=== PATIENT | female | born 1985 | race Two or more races ===

== ENCOUNTER 2024-07-12 12:01 | Emergency (ER) | payer MEDICAID, SELFPAY ==
[2024-07-12 12:02] VITALS: BMI 31.4
[2024-07-12 12:31] VITALS: BP 129/91; PULSE 92; RESP 16; TEMP 36.8; O2SAT 97; BMI 29.9
--- NOTE | 2024-07-12 12:39 | XR_ITS ---
Examination: Abdomen sonogram, Limited Date and time of exam: July 12, 2024 1324 hours INDICATIONS: Right upper abdominal pain and nausea beginning 2 months ago. Technique: Real-time briones scale transabdominal sonographic images of the upper abdomen obtained. Findings: Negative for gallstones Gallbladder wall 0.3 cm no edema Common bile duct 0.3 cm Pancreatic head 2.5 cm Liver 12 cm fatty infiltration no focal liver lesions Normal hepatopedal portal venous flow Patent IVC IMPRESSION: Negative for cholelithiasis, negative for cholecystitis Fatty liver
--- NOTE | 2024-07-12 12:47 | EDNOTE_ITS ---
ED Abdominal Pain RME/HPI General Chief Complaint: Abdominal Pain Stated complaint: UR abdominal pain, Nausea Time seen by provider: 07/12/24 12:33 Arrival date/time: 07/12/24 12:01 This is a 38-year-old female with no significant past medical history presents to the emergency department with increased intermittent upper mid epigastric abdominal pain intermittent for 3 months. Patient does report she has been seeing her PCP and is pending an outpatient ultrasound. However states her pain increased today prompting her ED visit today. The patient denies any fever, no chills no nausea or vomiting. Patient did not attempt any interventions or take any OTC medications prior to ED visit. Source: patient Limitations: no limitations Related Data Home Medications ?Medication ?Instructions ?Recorded ?Confirmed Lactobacillus acidophilus 10 1 cap PO QDAY ##0 5 billion cell capsule (Probiotic) melatonin 5 mg tablet 10 mg PO HS PRN SLEEPLESSNES S #0 10/07/14 tabs Previous Rx's ?Medication ?Instructions ?Recorded sucralfate 100 mg/mL oral 10 ml PO BID 14 days #280 mL 07/12/24 suspension (Carafate) Allergies Allergy/AdvReac Type Severity Reaction Status Date / Time NKA* Allergy Uncoded 10/08/14 08:49 Review of Systems Review of Systems Systems Reviewed: All systems reviewed, normal except as documented Narrative Review of Systems: Gen: No fever, no chills, no weight loss EYES: No discharge, no visual changes, no pain HEENT: No ear pain, no congestion, no sore throat PULM: No shortness of breath, no cough, no congestion CV: No chest pain, no dyspnea on exertion, no palpitations GI: No nausea, no vomiting, no diarrhea, + pain, no constipation : No frequency, no urgency,? no dysuria Musc/skel: No joint pain, no back pain as well as Neuro: No weakness, no headache ED Exam General Limitations: Present no limitations General appearance: Present alert and in no apparent distress Head Head exam: Present atraumatic Eye Eye exam: Present normal appearance, PERRL and EOMI ENT ENT exam: Present normal exam, normal oropharynx and mucous membranes moist Neck Neck exam: Present normal inspection, full ROM and trachea midline Chest Chest inspection: Present normal inspection and symmetric chest wall rise Respiratory Respiratory exam: Present normal lung sounds bilaterally Cardiovascular Cardiovascular exam: Present regular rate, normal rhythm and normal heart sounds Abdominal Exam Abdominal exam: Present soft and normal bowel sounds Extremities Exam Extremities exam: Present normal inspection and full ROM Back Exam Back exam: Present normal inspection and full ROM Neurological Exam Neurological exam: Present alert, oriented X3 and CN II-XII intact Psychiatric Psychiatric exam: Present normal affect and normal mood Skin Skin exam: Present warm, dry, intact and normal color Course Quality Measures none Orders Category Date Time Status US gall bladder Stat Exams 07/12/24 12:39 Completed CBC Stat Lab 07/12/24 12:45 Completed Comprehensive Metabolic Panel Stat Lab 07/12/24 12:45 Completed HCG Qualitative,Urine Stat Lab 07/12/24 13:00 Completed Lipase Stat Lab 07/12/24 12:45 Completed Urinalysis Stat Lab 07/12/24 13:00 Completed Lidocaine 2% Viscous [Xylocaine 2% Viscous] Med 07/12/24 14:16 Discontinued 15 ml PO X1 ONE mg Hyd/Al Hyd/Zee Susp [Maalox Susp] Med 07/12/24 14:16 Discontinued 30 ml PO X1 ONE Vital Signs Vital signs: Vital Signs Temperature 98.3 F 07/12/24 12:31 Pulse Rate 92 07/12/24 12:31 Respiratory Rate 16 07/12/24 12:31 Blood Pressure 129/91 H 07/12/24 12:31 Pulse Oximetry (%) 97 07/12/24 12:31 Oxygen Delivery Method Room Air 07/12/24 12:31 Abdominal Pain MDM Patient data External records reviewed:: [facility] previous records Clinical information provided by:: patient Social determinants that could affect healthcare access:: none Patient has the following chronic illnesses:: no How is presenting disease/condition affected by chronic disease/condition?: no chronic disease Evaluation data The following diagnostics were reviewed and interpreted by me:: lab results and radiology exam(s) Lab and/or radiology exams considered but not ordered:: no Interpretation Summary: Examination: Abdomen sonogram, Limited Date and time of exam: July 12, 2024 1324 hours INDICATIONS: Right upper abdominal pain and nausea beginning 2 months ago. Technique: Real-time briones scale transabdominal sonographic images of the upper abdomen obtained. Findings: Negative for gallstones Gallbladder wall 0.3 cm no edema Common bile duct 0.3 cm Pancreatic head 2.5 cm Liver 12 cm fatty infiltration no focal liver lesions Normal hepatopedal portal venous flow Patent IVC IMPRESSION: Negative for cholelithiasis, negative for cholecystitis Fatty liver Medications / Prescriptions Medications or Prescriptions considered but not ordered:: no Medication administrations:: Medication Administration History Discontinued Medications Al Hydrox/Mg Hydrox/Simethicone (Mg Hyd/Al Hyd/Zee (Maalox Reg) Susp 30 Ml Udc) 30 ml PO X1 ONE Stop: 07/12/24 14:17 Last Admin: 07/12/24 15:12 Dose: 30 ml Documented By: DB Lidocaine HCl (Lidocaine Viscous 2% 15 Ml Udc) 15 ml PO X1 ONE Stop: 07/12/24 14:17 Last Admin: 07/12/24 15:12 Dose: 15 ml Documented By: ENIO meds administered Consultations Consultation(s) initiated? (list below): No Diagnosis Differential diagnosis abdominal pain: abdominal pain, constipation, gastroenteritis, pancreatitis and other (gallstoness, gastritis.) Most likely diagnosis given after review of the tests above:: GERD=like symptoms Admission Indicated Admission indicated?: not indicated Admission Request Was there a request for admission?: No Disposition Plan Disposition Plan: Discharge Discharge Attestation Discharge Attestation: The patient and all family members were given an opportunity to ask questions and understood the discharge instructions. Discharge instructions specifically effects, indications for sooner follow up or return to the emergency department, and the expected course of current diagnosis. Patient condition: Stable Discharge Plan Plan Patient Disposition: HOME (Self Care) Patient condition on transfer: Stable Prescriptions/Referrals Prescriptions/Med Rec: New sucralfate [Carafate] 100 mg/mL suspension 10 ml PO BID 14 Days Qty: 280 0RF Rx Instructions: 10 ml PO QID, 1 hr before meals and bedtime 2wk No Action melatonin 5 MG tablet 10 mg PO HS PRN (Reason: SLEEPLESSNESS) Qty: 0 Lactobacillus acidophilus [Probiotic] 1 EACH capsule 1 cap PO QDAY Qty: 0 Referrals: Prudencio Maguire MD [Primary Care Provider] - In 1 week Problem List Clinical Impression: Epigastric abdominal pain Patient/Caregiver Discharge Instructions Discharge Activity: activity as tolerated Education Materials: ED Epigastric Pain (Uncertain Cause) Additional Instructions: Most likely your pain is from gastritis. Your labs today were all reassuring and normal. Your ultrasound did not demonstrate gallstones. Please use medication as directed. Return to the emergency department this any worsening symptoms any condition. Print Language: Libyan Stand Alone Forms: Jenifer Award Info., Patient Portal Info Letter
[2024-07-12 13:05] LABS: Basophils # (Auto) 0.1 Thou/mm3 (0.0-0.2); Basophils % (Auto) 1 % (0-2.5); Eosinophils # (Auto) 0.1 Thou/mm3 (0.0-0.5); Eosinophils % (Auto) 1 % (0-10); Hematocrit 40.3 % (36.0-46.0); Hemoglobin 13.9 g/dL (12.0-16.0); Immature Granulocytes % (Auto) 0 % (0-0); Immature Granulocytes Auto 0.01 Thou/mm3 (0.00-0.00); Lymphocytes # (Auto) 1.5 Thou/mm3 (1.0-4.8); Lymphocytes % (Auto) 25 % (10-50); Mean Corpuscular HGB Conc 34.5 g/dl (31.0-37.0); Mean Corpuscular Hemoglobin 30.4 pg (25.0-35.0); Mean Corpuscular Volume 88 fL (80-100); Monocytes # (Auto) 0.4 Thou/mm3 (0.0-0.8); Monocytes % (Auto) 6 % (0-12); Neutrophils % (Auto) 66 % (37-80); Nucleated Red Blood Cell % 0 /100 WBC (0); Platelet Count 258 Thou/mm3 (140-440); RDW Standard Deviation 40.8 fL (36.4-46.3); Red Blood Count 4.57 Miln/mm3 (4.00-5.20)
[2024-07-12 13:17] LABS: Collection Type, Urine Clean Catch
[2024-07-12 13:24] LABS: Alanine Aminotransferase 13 U/L (10-49); Albumin, Serum 4.9 gm/dL (3.5-5.0); Albumin/Globulin Ratio 1.6 (1.2-2.2); Alkaline Phosphatase 126 U/L (46-116); Anion Gap 11 (7-16); Aspartate Amino Transferase 17 U/L (0-34); BUN/Creatinine Ratio 15 Ratio (12-20); Bilirubin,Total 0.6 mg/dL (0.3-1.2); Blood Urea Nitrogen 9 mg/dL (9-23); Calcium 10.1 mg/dL (8.3-10.6); Calcium (Corrected) 10.1 mg/dL (8.5-10.1); Carbon Dioxide 22.3 mMol/L (20.0-31.0); Chloride 109 mMol/L (98-107); Creatinine (Component) 0.6 mg/dL (0.6-1.3); Estimated Creatinine Clearance 148.7 mL/min (>60); Globulin 3.1 gm/dL (2.3-3.5); Glucose 98 mg/dL (74-106); Lipase 29 U/L (12-53); Osmolality,Calculated 281 (275-295); Potassium 3.4 mMol/L (3.4-5.1); Sodium 142 mMol/L (136-145); eGFR > 60 See Note
[2024-07-12 13:38] LABS: Bilirubin,Urine Negative (Negative); Blood,Urine 3+ (Negative); Color,Urine Dark-Red (Lt Yel-Yel); Glucose, Urine Negative (Negative); Ketones,Urine 1+ (Negative); Leukocyte Esterase,Urine Positive (Negative); Nitrite,Urine Positive (Negative); PH,Urine 6.5 (5.0-7.0); Protein,Urine 3+ (Neg - Trace); Specific Gravity,Urine 1.025 (1.001-1.035); Urobilinogen,Urine Negative mg/dL (0.0-1.0)
[2024-07-12 13:39] LABS: Clarity,Urine Bloody (Clear/Hazy)
[2024-07-12 13:43] LABS: RBC,Urine 41787 /hpf (0-3); Squamous Epithelial Cell,Urine 180 /hpf (0-5); WBC,Urine 680 /hpf (0-5)
[2024-07-12 13:57] LABS: HCG Qualitative,Urine Negative
[2024-07-12] MEDS: LIDOCAINE VISCOUS 2% 15 ML UDC PO (15:12)
[2024-07-12] MEDS: MG HYD/AL HYD/SIME (Maalox Reg) SUSP 30 ML UDC PO (15:12)
== END 2024-07-12 15:52 | disposition home or self-care (01) ==
PROVIDERS: Nurse Practitioner Primary Care; Emergency Provider Emergency Medicine; PCP Family Medicine
DX: R10.13 Epigastric pain (principal)
CPT/HCPCS: 36415; 76705; 80053; 81001; 81025; 83690; 85025; 99284; J3490; A9270

== ENCOUNTER 2024-08-11 11:32 | Emergency (ER) | payer MEDICAID, SELFPAY ==
[2024-08-11 11:55] VITALS: BP 129/83; PULSE 71; RESP 18; TEMP 36.8; O2SAT 100; BMI 29.1
--- NOTE | 2024-08-11 12:00 | PD.EDABDPN ---
ED Abdominal Pain RME/HPI General Chief Complaint: Abdominal Pain Stated complaint: Right mid abdominal pain x 2d Time seen by provider: 08/11/24 11:36 Arrival date/time: 08/11/24 11:32 RME / HPI RME / HPI narrative: 38-year-old female patient with no significant medical history, came in for evaluation regarding right lower quadrant pain. Onset of symptoms since last night as sudden onset of right lower quadrant pain, described as dull ache, severity moderate. Patient denies any fever vomiting nausea diarrhea constipation hematuria frequency or other complaints. Patient was seen here last month for abdominal pain and ultrasound of the gallbladder came back unremarkable. Currently taking medication for gastritis. Related Data Home Medications ?Medication ?Instructions ?Recorded ?Confirmed Lactobacillus acidophilus 10 1 cap PO QDAY ##0 10/07/14 billion cell capsule (Probiotic) melatonin 5 mg tablet 10 mg PO HS PRN SLEEPLESSNESS #0 10/07/14 tabs Previous Rx's ?Medication ?Instructions ?Recorded metoclopramide HCl 10 mg tablet 10 mg PO Q6H PRN nausea and 08/11/24 (Reglan) vomiting #30 tabs pantoprazole 40 mg tablet,delayed 40 mg PO QDAY #30 tabs 08/11/24 release (Protonix) Allergies Allergy/AdvReac Type Severity Reaction Status Date / Time NKA* Allergy Uncoded 08/11/24 11:34 Review of Systems Review of Systems Narrative Review of Systems: Review of system reviewed and within normal limits except mentioned in HPI ED Exam Narrative Physical exam: VITAL SIGNS: Reviewed. GENERAL APPEARANCE: Alert and interactive, follows commands, no acute distress, HEAD AND FACE: Non-traumatic. ENT: PERRL, pink conjunctivitis, eyelid no trauma, Mucous membrane moist. NECK: Supple, nontender, no nuchal rigidity. CHEST: No tenderness, no crepitus, no paradoxical movement, no retractions. LUNGS: Clear, well ventilated, symmetric, no rales, no wheezing, no ronchi, no stridor, good breath sounds bilaterally. HEART: Regular rate, regular rhythm, no murmur, no gallops. ABDOMEN: Soft, positive bowel sounds, nondistended, no guarding, right lower quadrant tenderness, no rebound, no masses, RECTAL: Deferred. GENITAL: Deferred. NEUROLOGICAL: Gross motor function intact sensory function intact, Appropriate for age. MUSCULOSKELETAL: low back nontender, full range of motion. EXTREMITIES: Nontender, full range of motion. SKIN: Color pink, dry, no rash, no lacerations, no abrasions, no contusions. LYMPHATICS: Deferred. Course Quality Measures none Orders Category Date Time Status CT Screening NOW Care 08/11/24 12:[address] abdomen pelvis w con Stat Exams 08/11/24 12:13 Completed CBC Stat Lab 08/11/24 12:46 Completed Comprehensive Metabolic Panel Stat Lab 08/11/24 12:46 Completed HCG Qualitative,Urine Stat Lab 08/11/24 12:48 Completed Lipase Stat Lab 08/11/24 12:46 Completed Partial Thromboplastin Time Stat Lab 08/11/24 12:46 Completed Urinalysis, C/S if Indicated Stat Lab 08/11/24 12:48 Completed KCL 10% Liq UDC 15 ML Med 08/11/24 14:25 Discontinued 40 meq GT X1 ONE Ketorolac Inj [Toradol Inj] Med 08/11/24 12:15 Discontinued 30 mg IVP X1 ONE Ondansetron Odt [Zofran Odt] Med 08/11/24 12:15 Discontinued 4 mg PO X1 ONE mg Hyd/Al Hyd/Zee Susp [Maalox Susp] Med 08/11/24 15:52 Discontinued 30 ml PO X1 ONE Vital Signs Vital signs: Vital Signs Temperature 98.3 F 08/11/24 11:55 Pulse Rate 71 08/11/24 11:55 Respiratory Rate 18 08/11/24 11:55 Blood Pressure 129/83 08/11/24 11:55 Pulse Oximetry (%) 100 08/11/24 11:55 Oxygen Delivery Method Room Air 08/11/24 11:55 Abdominal Pain MDM MDM Narrative MDM Narrative:: 38-year-old female patient with no significant medical history, came in for evaluation regarding right lower quadrant pain. Onset of symptoms since last night as sudden onset of right lower quadrant pain, described as dull ache, severity moderate. Patient denies any fever vomiting nausea diarrhea constipation hematuria frequency or other complaints. Patient was seen here last month for abdominal pain and ultrasound of the gallbladder came back unremarkable. Currently taking medication for gastritis. Laboratory workup all came back with no leukocytosis, CMP is significant for for potassium of 3.1. Total bili is normal, AST slightly elevated ALT slightly elevated. Urinalysis mild hematuria CT scan of the abdomen and pelvis showedNormal appendix Nonobstructing left renal calculi Results discussed with the patient. Prior to discharge patient verbalized significant provide of right upper quadrant pain Patient data External records reviewed:: None Clinical information provided by:: patient and family Social determinants that could affect healthcare access:: none Patient has the following chronic illnesses:: none How is presenting disease/condition affected by chronic disease/condition?: uneffected by Evaluation data The following diagnostics were reviewed and interpreted by me:: lab results and radiology exam(s) Lab and/or radiology exams considered but not ordered:: none Interpretation Summary: See results in [facility] Medications / Prescriptions Medications or Prescriptions considered but not ordered:: None Medication administrations:: Medication Administration History Discontinued Medications Al Hydrox/Mg Hydrox/Simethicone (Mg Hyd/Al Hyd/Zee (Maalox Reg) Susp 30 Ml Udc) 30 ml PO X1 ONE Stop: 08/11/24 15:53 Last Admin: 08/11/24 15:54 Dose: 30 ml Documented By: UMM Ketorolac Tromethamine (Ketorolac Inj 30 Mg/Ml Vial) 30 mg IVP X1 ONE Stop: 08/11/24 12:16 Last Admin: 08/11/24 14:13 Dose: 30 mg Documented By: GARRETT Ondansetron HCl (Ondansetron Odt 4 Mg Tabrap) 4 mg PO X1 ONE; Protocol Stop: 08/11/24 12:16 Last Admin: 08/11/24 14:12 Dose: 4 mg Documented By: GARRETT Potassium Chloride (Potassium Chloride 10% 20 Meq/15 Ml Udc) 40 meq GT X1 ONE Stop: 08/11/24 14:26 Last Admin: 08/11/24 14:36 Dose: 40 meq Documented By: UMM Toradol Maalox and Zofran potassium replaced Consultations Consultation(s) initiated? (list below): No Diagnosis Differential diagnosis abdominal pain: abdominal pain, calculus of kidney, diverticulitis and other (Biliary colic) Most likely diagnosis given after review of the tests above:: Abdominal pain Admission Indicated Admission indicated?: not indicated Admission Request Was there a request for admission?: No Disposition Plan Disposition Plan: Discharge Discharge Attestation Discharge Attestation: The patient and all family members were given an opportunity to ask questions and understood the discharge instructions. Discharge instructions specifically effects, indications for sooner follow up or return to the emergency department, and the expected course of current diagnosis. Patient condition: Stable Discharge Plan Plan Patient Disposition: HOME (Self Care) Disposition Comment: Stable Prescriptions/Referrals Prescriptions/Med Rec: New metoclopramide HCl [Reglan] 10 mg tablet 10 mg PO Q6H PRN (Reason: nausea and vomiting) Qty: 30 0RF pantoprazole [Protonix] 40 mg tablet,delayed release (DR/EC) 40 mg PO QDAY Qty: 30 0RF No Action melatonin 5 MG tablet 10 mg PO HS PRN (Reason: SLEEPLESSNESS) Qty: 0 Lactobacillus acidophilus [Probiotic] 1 EACH capsule 1 cap PO QDAY Qty: 0 Referrals: Prudencio Maguire MD [Primary Care Provider] - In 1 week Problem List Clinical Impression: Abdominal pain Patient/Caregiver Discharge Instructions Discharge Activity: activity as tolerated Education Materials: Abdominal Pain Additional Instructions: Thank you for the opportunity for serving you today. You are stable for discharged . You are advised to: Follow-up with your PCP in 1 to 2 days Return to ED for worsening of symptoms Increase oral fluids Take medication as prescribed Print Language: American Stand Alone Forms: Jenifer Award Info., Patient Portal Info Letter
--- NOTE | 2024-08-11 12:13 | XR_ITS ---
Examination: CT abdomen with intravenous contrast CT pelvis with intravenous contrast 2-D coronal reconstructions 2-D sagittal reconstructions Date and time of exam:August 11, 2024 1427 hrs. Indications: Right lower abdominal pain beginning 2 days ago. CTDI: vol (mGy) 10.9 DLP: (mGycm) 616 Technique: Multiple axial sections of the abdomen and pelvis have been obtained. 64 slice high-resolution scanner used. 3 mm axial sections have been obtained, post intravenous injection 60 cc [id number] 2-D sagittal, coronal reconstructions obtained. Low dose protocols were performed. One or more of the following dose reduction techniques were used; automated exposure control, adjustment of the mA and/or KV according to patient size, use of iterative reconstruction technique. Findings: Diffuse fatty infiltration throughout the liver, no focal liver or splenic lesions No gallstones Negative for pancreatitis 1 to 2 mm left renal calculi, no hydronephrosis or ureteral calculi Normal appendix No pelvic mass No bladder calculi Impression: Normal appendix Nonobstructing left renal calculi
[2024-08-11 13:19] LABS: Collection Type, Urine Clean Catch
[2024-08-11 13:36] LABS: Bilirubin,Urine Negative (Negative); Blood,Urine 3+ (Negative); Color,Urine Lt-Yellow (Lt Yel-Yel); Culture Indicated,Urine Not Indicated; Glucose, Urine Negative (Negative); Ketones,Urine 1+ (Negative); Leukocyte Esterase,Urine Negative (Negative); Nitrite,Urine Negative (Negative); Protein,Urine Negative (Neg - Trace); RBC,Urine 7 /hpf (0-3); Specific Gravity,Urine 1.008 (1.001-1.035); Squamous Epithelial Cell,Urine 8 /hpf (0-5); Transitional Epi Cells,Urine < 1 /hpf (0-5); Urobilinogen,Urine Negative mg/dL (0.0-1.0); WBC,Urine 4 /hpf (0-5)
[2024-08-11 13:37] LABS: Clarity,Urine Hazy (Clear/Hazy)
[2024-08-11 13:38] LABS: HCG Qualitative,Urine Negative
[2024-08-11 13:57] LABS: Basophils % (Auto) 0 % (0-2.5); Eosinophils # (Auto) 0.1 Thou/mm3 (0.0-0.5); Eosinophils % (Auto) 1 % (0-10); Hematocrit 38.6 % (36.0-46.0); Hemoglobin 13.2 g/dL (12.0-16.0); Immature Granulocytes % (Auto) 0 % (0-0); Immature Granulocytes Auto 0.02 Thou/mm3 (0.00-0.00); Lymphocytes # (Auto) 1.4 Thou/mm3 (1.0-4.8); Lymphocytes % (Auto) 26 % (10-50); Mean Corpuscular HGB Conc 34.2 g/dl (31.0-37.0); Mean Corpuscular Hemoglobin 29.9 pg (25.0-35.0); Mean Corpuscular Volume 87 fL (80-100); Monocytes # (Auto) 0.4 Thou/mm3 (0.0-0.8); Monocytes % (Auto) 7 % (0-12); Neutrophils # (Auto) 3.5 Thou/mm3 (1.8-7.7); Neutrophils % (Auto) 65 % (37-80); Nucleated Red Blood Cell % 0 /100 WBC (0); Platelet Count 263 Thou/mm3 (140-440); RDW Standard Deviation 40.9 fL (36.4-46.3); Red Blood Count 4.42 Miln/mm3 (4.00-5.20); White Blood Count 5.4 Thou/mm3 (3.6-11.0)
[2024-08-11 14:08] LABS: Partial Thromboplastin Time 28.7 Seconds (22.0-36.0)
[2024-08-11 14:12] LABS: Alanine Aminotransferase 72 U/L (10-49); Albumin, Serum 4.5 gm/dL (3.5-5.0); Albumin/Globulin Ratio 1.6 (1.2-2.2); Alkaline Phosphatase 106 U/L (46-116); Anion Gap 10 (7-16); Aspartate Amino Transferase 54 U/L (0-34); BUN/Creatinine Ratio 7 Ratio (12-20); Bilirubin,Total 0.6 mg/dL (0.3-1.2); Blood Urea Nitrogen < 5 mg/dL (9-23); Calcium 9.5 mg/dL (8.3-10.6); Calcium (Corrected) 9.5 mg/dL (8.5-10.1); Carbon Dioxide 23.4 mMol/L (20.0-31.0); Chloride 110 mMol/L (98-107); Creatinine (Component) 0.7 mg/dL (0.6-1.3); Estimated Creatinine Clearance 121.6 mL/min (>60); Globulin 2.9 gm/dL (2.3-3.5); Glucose 91 mg/dL (74-106); Lipase 31 U/L (12-53); Osmolality,Calculated 282 (275-295); Potassium 3.1 mMol/L (3.4-5.1); Sodium 143 mMol/L (136-145); Total Protein 7.4 gm/dL (5.7-8.2); eGFR > 60 See Note
[2024-08-11] MEDS: ONDANSETRON ODT 4 MG TABRAP PO (14:12)
[2024-08-11] MEDS: KETOROLAC INJ 30 MG/ML VIAL IVP (14:13)
[2024-08-11] MEDS: POTASSIUM CHLORIDE 10% 20 MEQ/15 ML UDC 40 MEQ GT (14:36)
--- NOTE | 2024-08-11 15:35 | PRELIM_ITS ---
CT scan of the abdomen and pelvis with intravenous contrast (axial sections with sagittal and coronal reformats) August 11, 2024 1427 hours Clinical History: Right lower quadrant pain Comparison: No prior study is available for comparison. Findings: The lung bases are clear. The liver, gallbladder, pancreas, spleen, right kidney and adrenals are unremarkable. Nonobstructing left renal calculi are seen, the largest measuring 2 mm. No evidence of bowel obstruction. The appendix is within normal limits (coronal images [id number]). There is no mesenteric or retroperitoneal adenopathy. The urinary bladder is unremarkable. An IUCD is seen in place. There are bilateral follicles. There is no free fluid or free air. The osseous structures are unremarkable. Impression: No evidence of appendicitis or other acute intra-abdominal/pelvic pathology. Report Electronically Signed By: Shawn Harrison 08/11/2024 3:35:18 PM [EST]
[2024-08-11] MEDS: MG HYD/AL HYD/SIME (Maalox Reg) SUSP 30 ML UDC PO (15:54)
== END 2024-08-11 17:02 | disposition home or self-care (01) ==
PROVIDERS: Nurse Practitioner Family; Emergency Provider Emergency Medicine; PCP Family Medicine
DX: R10.31 Right lower quadrant pain (principal)
CPT/HCPCS: 36415; 74177; 80053; 81001; 81025; 83690; 85025; 85730; 96374; 99285; A4649; J1885; Q0162; Q9967; A9270

== ENCOUNTER 2024-11-02 07:11 | Inpatient (IN) | payer MEDICAID, SELFPAY ==
[2024-11-02] VITALS (8 sets, daily range): BP systolic 94–123; BP diastolic 65–85; PULSE 60–79; RESP 17–97; TEMP 36.1–36.9; O2SAT 95–100; BMI 25.4
--- NOTE | 2024-11-02 07:23 | XR_ITS ---
Examination: CT abdomen and pelvis without contrast. Coronal 3-D reconstructions. Sagittal 2-D reconstructions. Date and time of exam:November 02, 2024 0744 hours Comparison August 11, 2024 INDICATIONS: Left-sided flank pain beginning this morning, history right kidney stones CTDI: vol (mGy): 9.11 DLP: (mGycm): 544 Technique: Axial images of the abdomen have been obtained, 3 mm slice thickness Intravenous contrast material has not been administered. Low dose protocols were performed. One or more of the following dose reduction techniques were used; automated exposure control, adjustment of the mA and/or KV according to patient size, use of iterative reconstruction technique. Findings: No focal liver or splenic lesions No gallstones No pancreatic or adrenal mass 2 mm left renal calculus Minimal left hydronephrosis secondary to 2 mm proximal left ureteral calculus, coronal image 67 Aorta normal size Normal appendix No bowel obstruction Also 3 mm calculus either within the urinary bladder or at the left ureterovesical junction IMPRESSION: Minimal left hydronephrosis secondary to 2 mm proximal left ureteral calculus Also 3 mm calculus either within the urinary bladder or at the left ureterovesical junction
[2024-11-02] MEDS: DICYCLOMINE INJ 10 MG/ML 2ML AMP IM (07:32)
[2024-11-02] MEDS: LIDOCAINE VISCOUS 2% 15 ML UDC PO (07:33)
[2024-11-02] MEDS: FAMOTIDINE 20 MG TABLET PO (07:33)
[2024-11-02] MEDS: MG HYD/AL HYD/SIME (Maalox Reg) SUSP 30 ML UDC PO (07:33)
[2024-11-02 08:10] LABS: Collection Type, Urine Clean Catch
[2024-11-02 08:17] LABS: Bacteria,Urine Rare; Bilirubin,Urine Negative (Negative); Blood,Urine 3+ (Negative); Clarity,Urine Turbid (Clear/Hazy); Color,Urine Yellow (Lt Yel-Yel); Glucose, Urine Negative (Negative); Ketones,Urine 3+ (Negative); Leukocyte Esterase,Urine Positive (Negative); Nitrite,Urine Negative (Negative); Protein,Urine 1+ (Neg - Trace); RBC,Urine 693 /hpf (0-3); Specific Gravity,Urine 1.027 (1.001-1.035); Squamous Epithelial Cell,Urine 14 /hpf (0-5); WBC,Urine 15 /hpf (0-5)
[2024-11-02 08:18] LABS: HCG Qualitative,Urine Negative
[2024-11-02] MEDS: SODIUM CHLORIDE 0.9% 1000 ML 1,000 ML 999 ML IV (08:33)
[2024-11-02] MEDS: FAMOTIDINE INJ 10 MG/ML VIAL 2 ML 20 MG IVP (08:34)
[2024-11-02] MEDS: ONDANSETRON INJ 2 MG/ML INJ 2 ML 4 MG IVP ×2 (08:34→11:15)
--- NOTE | 2024-11-02 08:38 | EDNOTE_ITS ---
ED Abdominal Pain RME/HPI General Chief Complaint: Abdominal Pain Stated complaint: LLQ ABD PAIN, NAUSEA, URINARY URGENCY Time seen by provider: 11/02/24 07:12 Arrival date/time: 11/02/24 07:11 This is a case of 39-year-old female who came in in the emergency room due to left lower quadrant and left upper quadrant pain radiating to the left flank for 2 days patient have history of gastritis associated with nausea vomiting patient states that she already saw a business services representative and scheduled to do a EGD and colonoscopy patient denies any constipation or diarrhea persistence of the symptoms this patient decided to start consult with the emergency room Limitations: no limitations Related Data Home Medications ?Medication ?Instructions ?Recorded ?Confirmed Lactobacillus acidophilus 10 1 cap PO QDAY ##0 5 billion cell capsule (Probiotic) melatonin 5 mg tablet 10 mg PO HS PRN SLEEPLESSNES S #0 10/07/14 tabs Previous Rx's ?Medication ?Instructions ?Recorded metoclopramide HCl 10 mg tablet 10 mg PO Q6H PRN nause a and 08/11/24 (Reglan) vomiting #30 tabs pantoprazole 40 mg tablet,delayed 40 mg PO QDAY #30 ta bs 08/11/24 release (Protonix) Allergies Allergy/AdvReac Type Severity Reaction Status Date / Time No Known Allergies Allergy Verified 11/02/24 07:13 Review of Systems Review of Systems Systems Reviewed: All systems reviewed, normal except as documented Constitutional Constitutional: Reports system reviewed and no additional complaints, except as documented ENT Ears, Nose, Mouth, and Throat: Denies dysphagia and Denies odynophagia Cardiovascular Cardiovascular: Reports system reviewed and no additional complaints, except as documented Gastrointestinal Gastrointestinal: Reports system reviewed and no additional complaints, except as documented, Reports abdominal pain, Denies belching, Denies bloating, Denies change in bowel habits, Denies change in stool character, Denies coffee ground emesis, Denies constipation, Denies cramping, Denies diarrhea, Denies dyspepsia, Denies dysphagia, Denies early satiety, Denies excessive flatus, Denies fecal incontinence, Denies heartburn, Denies hematemesis, Denies hematochezia, Denies loose stools, Denies melena, Reports nausea, Denies odynophagia, Denies tenesmus and Reports vomiting Genitourinary Genitourinary: Reports system reviewed and no additional complaints, except as documented, Denies as per HPI, Denies abnormal menses, Denies abnormal vaginal bleeding, Denies amenorrhea, Denies change in libido, Denies difficulty conceiving, Denies difficulty voiding, Denies dysmenorrhea, Denies dyspareunia, Denies dysuria, Reports flank pain, Denies genital lesions, Denies genital pruritis, Reports hematuria, Denies hot flashes, Denies light periods, Denies menorrhagia, Denies metrorrhagia, Denies nipple discharge, Denies nocturia, Denies pelvic pain, Denies post void dribbling, Denies prolapse symptoms, Denies sexual dysfunction, Denies urinary frequency, Denies urinary incontinence, Denies urinary urgency, Denies vaginal discharge, Denies vaginal odor and Denies vaginal pruritus Integumentary/Breasts Skin/Breast: Denies nipple discharge Neurologic Neurologic: Reports system reviewed and no additional complaints, except as documented and Reports as per HPI Psychiatric Psychiatric: Denies change in libido Endocrine Endocrine: Denies change in libido Past Medical History Past Medical History CARDIAC: Negative Cardiac Disorders or Congestive Heart Failure RESPIRATORY: Negative Chronic Obstructive Pulmonary Disease (COPD) or Asthma GENITOURINARY: Negative Renal Disease ENDOCRINE: Negative Diabetes Mellitus Type 1 or Diabetes Mellitus Type 2 HEMATOLOGIC: Negative Sickle Cell Disease Social History SMOKING STATUS: Never smoker ED Exam General Limitations: Present no limitations General appearance: Present alert and in no apparent distress; Absent appears intoxicated, anxious or lethargic Head Head exam: Present atraumatic, normocephalic and normal inspection Eye Eye exam: Present normal appearance, PERRL and EOMI ENT ENT exam: Present normal exam, normal oropharynx and mucous membranes moist Neck Neck exam: Present normal inspection, full ROM and trachea midline; Absent tenderness, meningismus, lymphadenopathy or thyromegaly Chest Chest inspection: Present normal inspection and symmetric chest wall rise; Absent tenderness, rash or abscess Respiratory Respiratory exam: Present normal lung sounds bilaterally; Absent respiratory distress, wheezes, stridor, accessory muscle use or prolonged expiratory phase Cardiovascular Cardiovascular exam: Present regular rate, normal rhythm and normal heart sounds Abdominal Exam Abdominal exam: Present soft, tenderness (Mild to moderate tenderness left upper left lower quadrant and left flank) and normal bowel sounds; Absent distention, guarding, rebound, rigidity, diminished bowel sounds, hyperactive bowel sounds, hypoactive bowel sounds, organomegaly, trauma, incision, psoas sign, obturator sign, heel tap sign, Casiano's sign, Rovsing's sign, tenderness at McBurney's Point, ascites, mass, bruit, pulsatile mass, hernia or scar Abdominal tenderness: Present LUQ, LLQ and moderate External exam: Present other (No CVA tenderness) Extremities Exam Extremities exam: Present normal inspection and full ROM Back Exam Back exam: Present normal inspection and full ROM Neurological Exam Neurological exam: Present alert, oriented X3, CN II-XII intact, normal gait and reflexes normal; Absent motor sensory deficit Psychiatric Psychiatric exam: Present normal affect and normal mood Skin Skin exam: Present warm, dry, intact and normal color Course Quality Measures none Orders Category Date Time Status COVID-19 Screening Questionnaire NOW Care 11/02/24 09:41 Active Decision to Admit X1 Care 11/02/24 09:41 Completed Transfer to another facility [Transfer/Discharge] Stat Discharge 11/02/24 09:[address] abdomen pelvis wo con Stat Exams 11/02/24 07:23 Completed CBC Stat Lab 11/02/24 08:25 Completed Comprehensive Metabolic Panel Stat Lab 11/02/24 08:25 Completed Drug Screen,Urine Stat Lab 11/02/24 08:42 Completed HCG Qualitative,Urine Stat Lab 11/02/24 08:00 Completed Lactic Acid [Lactate (Lactic Acid)] Stat Lab 11/02/24 09:34 Ordered Lipase Stat Lab 11/02/24 08:25 Completed Urinalysis Stat Lab 11/02/24 08:00 Completed Dicyclomine Inj [Bentyl Inj] Med 11/02/24 07:24 Discontinued 10 mg IM X1 ONE Famotidine Inj [Pepcid Inj] Med 11/02/24 08:05 Discontinued 20 mg IVP X1 ONE Famotidine [Pepcid] Med 11/02/24 07:24 Discontinued 20 mg PO X1 ONE Lidocaine 2% Viscous [Xylocaine 2% Viscous] Med 11/02/24 07:24 Discontinued 15 ml PO X1 ONE Morphine Inj Med 11/02/24 08:42 Active 4 mg IVP Q1H PRN Ondansetron Inj [Zofran Inj] Med 11/02/24 08:05 Discontinued 4 mg IVP X1 ONE Sodium Chloride 0.9% 1000 ml [Ns] 1,000 ml Med 11/02/24 08:05 Discontinued IV 999 mls/hr cefTRIAXone/D5w 1gm IV premix [Rocephin/D5w 1gm IV Med 11/02/24 09:19 Discontinued premix] 1 gm in 50 ml IV X1 mg Hyd/Al Hyd/Zee Susp [Maalox Susp] Med 11/02/24 07:24 Discontinued 30 ml PO X1 ONE Vital Signs Vital signs: Vital Signs Temperature 98.2 F 11/02/24 07:20 Pulse Rate 70 11/02/24 07:20 Respiratory Rate 20 11/02/24 07:20 Blood Pressure 122/81 11/02/24 07:20 Pulse Oximetry (%) 99 11/02/24 07:20 Oxygen Delivery Method Room Air 11/02/24 07:20 Patient is afebrile not tachycardic not tachypneic blood pressure stable not hypoxic Abdominal Pain MDM MDM Narrative MDM Narrative:: This is a case of 39-year-old female who came in in the emergency room due to left lower quadrant and left upper quadrant pain radiating to the left flank for 2 days patient have history of gastritis associated with nausea vomiting patient states that she already saw a business services representative and scheduled to do a EGD and colonoscopy patient denies any constipation or diarrhea persistence of the symptoms this patient decided to start consult with the emergency room physical examination patient is awake alert oriented not in distress nontoxic looking patient is afebrile not tachycardic not tachypneic not hypoxic patient abdominal exam noted mild to moderate tenderness on the left lower quadrant left upper quadrant and left flank but no CVA tenderness no guarding no rebound no rigidity negative psoas negative straight or negative Rovsing's negative Blade's negative Casiano sign patient excellent skin turgor no signs and symptoms of sepsis no signs and symptoms of dehydration patient was given a bolus of normal saline Zofran IV and morphine for pain with Pepcid patient blood test showed no leukocytosis no anemia kidney and liver function is normal no electrolyte imbalance patient urinalysis showed blood and WBC in urine suggestive of urinary tract infection and microscopic hematuria patient CT scan showed a bilateral ureteral stone with hydronephrosis at this point I spoke to Dr. Ortiz discussed patient condition history and physical examination and agreed that the patient need to be transferred earlier admitted due to infected ureteral stone I spoke to Dr. Agustin urologist I discussed patient condition history and physical examination and agreed that the patient need to be admission suggest admission consult him for urologic consult I spoke to discussed patient condition history and physical examination and agreed that the patient need to be admitted and accept patient care and admission I discussed with the patient the treatment plan and admission and agreed patient was given ceftriaxone for urinary tract infection and ordered lactic acid Patient data External records reviewed:: [facility] previous records Clinical information provided by:: none Social determinants that could affect healthcare access:: none Patient has the following chronic illnesses:: None How is presenting disease/condition affected by chronic disease/condition?: no chronic disease Evaluation data The following diagnostics were reviewed and interpreted by me:: lab results and radiology exam(s) Lab and/or radiology exams considered but not ordered:: Reviewed Interpretation Summary: Reviewed Medications / Prescriptions Medications or Prescriptions considered but not ordered:: Given Medication administrations:: Medication Administration History Morphine Sulfate (Morphine Sulf Inj 10 Mg/Ml Vial) 4 mg IVP Q1H PRN PRN Reason: abd pain Stop: 11/07/24 08:41 Last Admin: 11/02/24 08:47 Dose: 4 mg Documented By: ANDERSON Discontinued Medications Al Hydrox/Mg Hydrox/Simethicone (Mg Hyd/Al Hyd/Zee (Maalox Reg) Susp 30 Ml Udc) 30 ml PO X1 ONE Stop: 11/02/24 07:25 Last Admin: 11/02/24 07:33 Dose: 30 ml Documented By: ANDERSON Dicyclomine HCl (Dicyclomine Inj 10 Mg/Ml 2ml Amp) 10 mg IM X1 ONE Stop: 11/02/24 07:25 Last Admin: 11/02/24 07:32 Dose: 10 mg Documented By: ANDERSON Famotidine (Famotidine 20 Mg Tablet) 20 mg PO X1 ONE Stop: 11/02/24 07:25 Last Admin: 11/02/24 07:33 Dose: 20 mg Documented By: ANDERSON Famotidine (Famotidine Inj 10 Mg/Ml Vial 2 Ml) 20 mg IVP X1 ONE Stop: 11/02/24 08:06 Last Admin: 11/02/24 08:34 Dose: 20 mg Documented By: BRIANA Sodium Chloride (Ns) 1,000 mls @ 999 mls/hr IV .Q1H1M ONE Stop: 11/02/24 09:05 Last Admin: 11/02/24 08:33 Dose: 999 mls/hr Documented By: BRIANA Ceftriaxone Sodium/Dextrose (Rocephin/D5w 1gm Iv Premix) 1 gm in 50 mls @ 100 mls/hr IV X1 ONE Stop: 11/02/24 09:48 Last Admin: 11/02/24 09:28 Dose: 100 mls/hr Documented By: ANDERSON Lidocaine HCl (Lidocaine Viscous 2% 15 Ml Udc) 15 ml PO X1 ONE Stop: 11/02/24 07:25 Last Admin: 11/02/24 07:33 Dose: 15 ml Documented By: ANDERSON Ondansetron HCl (Ondansetron Inj 2 Mg/Ml Inj 2 Ml) 4 mg IVP X1 ONE; Protocol Stop: 11/02/24 08:06 Last Admin: 11/02/24 08:34 Dose: 4 mg Documented By: BRIANA Given Consultations Consultation(s) initiated? (list below): Yes Consultation #1 (Physician, Specialty, Details): dr ortiz agreed that the patient need to be admitted or transfer for infected ureteral stone Consultation #2 (Physician, Specialty, Details): dr hall ordered to admit patient consult him for urology consult Consultation #3 (Physician, Specialty, Details): Dr horan accept patient admission Diagnosis Differential diagnosis abdominal pain: abdominal pain, acute appendicitis, calculus of kidney, diverticulitis, gastroenteritis and small bowel obstruction Most likely diagnosis given after review of the tests above:: Ureteral stone Admission Indicated Admission indicated?: indicated Explain why admission is indicated or not indicated:: Infected ureteral stone Admission Request Was there a request for admission?: Yes Admission Attestation Admission request attestation: Discussed case with [] from Hospitalist service regarding admission. Discussed patients ED course, exam findings, labs, and radiology results. The Hospitalist [agrees,declines] to accept the patient for admission. Disposition Plan Disposition Plan: Admit Discharge Plan Plan Patient Disposition: Admit Acute Care w/in Hospital Patient condition on transfer: Stable Prescriptions/Referrals Prescriptions/Med Rec: No Action melatonin 5 MG tablet 10 mg PO HS PRN (Reason: SLEEPLESSNESS) Qty: 0 Lactobacillus acidophilus [Probiotic] 1 EACH capsule 1 cap PO QDAY Qty: 0 metoclopramide HCl [Reglan] 10 mg tablet 10 mg PO Q6H PRN (Reason: nausea and vomiting) Qty: 30 0RF pantoprazole [Protonix] 40 mg tablet,delayed release (DR/EC) 40 mg PO QDAY Qty: 30 0RF Referrals: Rubi Ballard PA-C [Primary Care Provider] - In 1 week Problem List Clinical Impression: Abdominal pain, Bilateral ureteral calculi, Urinary tract infection, Microscopic hematuria, Hydronephrosis Patient/Caregiver Discharge Instructions Education Materials: Abdominal Pain, ED Kidney Stone w/ Colic Print Language: Bengali Stand Alone Forms: Jenifer Award Info., Patient Portal Info Letter PA/INSPECTOR FINAL ASSEMBLY MECHANICAL Supervising Physician PA/INSPECTOR FINAL [employer] MECHANICAL Supervising Physician: Dr Ortiz
[2024-11-02 08:44] LABS: Basophils # (Auto) 0.1 Thou/mm3 (0.0-0.2); Basophils % (Auto) 1 % (0-2.5); Eosinophils # (Auto) 0.1 Thou/mm3 (0.0-0.5); Eosinophils % (Auto) 1 % (0-10); Hematocrit 31.4 % (36.0-46.0); Hemoglobin 10.9 g/dL (12.0-16.0); Immature Granulocytes % (Auto) 0 % (0-0); Immature Granulocytes Auto 0.02 Thou/mm3 (0.00-0.00); Lymphocytes # (Auto) 0.7 Thou/mm3 (1.0-4.8); Lymphocytes % (Auto) 8 % (10-50); Mean Corpuscular HGB Conc 34.7 g/dl (31.0-37.0); Mean Corpuscular Hemoglobin 30.2 pg (25.0-35.0); Mean Corpuscular Volume 87 fL (80-100); Monocytes # (Auto) 0.4 Thou/mm3 (0.0-0.8); Monocytes % (Auto) 5 % (0-12); Neutrophils # (Auto) 7.6 Thou/mm3 (1.8-7.7); Neutrophils % (Auto) 86 % (37-80); Nucleated Red Blood Cell % 0 /100 WBC (0); Platelet Count 236 Thou/mm3 (140-440); RDW Standard Deviation 42.8 fL (36.4-46.3); Red Blood Count 3.61 Miln/mm3 (4.00-5.20); White Blood Count 8.9 Thou/mm3 (3.6-11.0)
[2024-11-02] MEDS: MORPHINE SULF INJ 10 MG/ML VIAL 4 MG IVP (08:47)
[2024-11-02 08:59] LABS: Alanine Aminotransferase 13 U/L (10-49); Albumin, Serum 4.2 gm/dL (3.5-5.0); Anion Gap 12 (7-16); Aspartate Amino Transferase 17 U/L (0-34); BUN/Creatinine Ratio 12 Ratio (12-20); Bilirubin,Total 0.4 mg/dL (0.3-1.2); Blood Urea Nitrogen 11 mg/dL (9-23); Calcium 9.1 mg/dL (8.3-10.6); Carbon Dioxide 23.2 mMol/L (20.0-31.0); Chloride 107 mMol/L (98-107); Creatinine (Component) 0.9 mg/dL (0.6-1.3); Estimated Creatinine Clearance 81.6 mL/min (>60); Glucose 114 mg/dL (74-106); Osmolality,Calculated 283 (275-295); Potassium 3.4 mMol/L (3.4-5.1); Sodium 142 mMol/L (136-145); Total Protein 6.6 gm/dL (5.7-8.2); eGFR > 60 See Note
[2024-11-02 09:00] LABS: Albumin/Globulin Ratio 1.8 (1.2-2.2); Alkaline Phosphatase 92 U/L (46-116); Calcium (Corrected) 9.1 mg/dL (8.5-10.1); Globulin 2.4 gm/dL (2.3-3.5); Lipase 24 U/L (12-53)
[2024-11-02 09:11] LABS: Amphetamine/Methamp Scrn,U Negative (Negative); Barbiturate Screen,Urine Negative (Negative); Benzodiazepines Screen,Urine Negative (Negative); Benzoylecgonine Screen, Ur Negative (Negative); Fentanyl Screen,Urine Negative (Negative); Opiate Screen,Urine Negative (Negative); THC Screen,Urine Negative (Negative)
[2024-11-02] MEDS: cefTRIAXone/D5w 1gm IV premix 1 GM/50 ML BAG IV (09:28)
[2024-11-02 10:05] LABS: Lactate (Lactic Acid) 0.7 mMol/L (0.4-2.0)
[2024-11-02] MEDS: TAMSULOSIN HCL 0.4 MG CAPSULE PO (10:52)
[2024-11-02 11:03] LABS: Alcohol, Blood Medical < 3.0 mg/dL (0-10.0)
[2024-11-02] MEDS: Milk Of Magnesia Susp 30 ML UDC PO (11:10)
--- NOTE | 2024-11-02 12:41 | PC.CC ---
Patient is a 39 year old female who presents to the Emergency Department for Nephrolithiasis. 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 Limits of confidentiality were discussed. Patient appears to be alert and oriented to self, location and situation. Patient was pleasant and engaged in initial assessment. Patient provided consent for carmela Hollingsworth ([phone]) to be present at bedside during assessment. Patient confirmed information on demographics. 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 Patient stated she lives with her Jonathon and her two children. Patient named carmela Holt as her medical decision maker. Patients primary care provider is Brittany Ballard as CN in [place] and her pharmacy of preference is [facility]. Patient is able to ambulate independently and complete her ADL's independently. Patient denies any DME use. Upon discharge patient plans to return home. event services manager will follow up with any discharge needs
--- NOTE | 2024-11-02 14:33 | ESHP_ITS ---
<Statement entered by Jean Pierre Stewart MD - 11/03/24 14:16> I discussed with and supervised the customer marketing intern physician involved in the care of this patient. Patient assessment and plan was discussed with entire medicine team, including my attending. I agree with the assessment and plan as documented by customer marketing intern doctor. Patient care was discussed with my attending physician Dr. 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 She reports a similar episode of right-sided pain for which she came to the ED and was found to have nephrolithiasis. She reports passing stones previously. In the ED she was hemodynamically stable, afebrile, satting well on room air. Labs were remarkable for hemoglobin 10.9, WBC count 8.9, lactic acid 0.7, BUN 11, creatinine 0.9. UA showed turbid urine with 3+ blood, 3+ ketones, positive leukocyte esterase, 693 RBCs, 15 WBC, squamous epithelial 14, rare bacteria. Urine culture was ordered. In the ED she received dicyclomine 10 mg x 1, Maalox 30 mL x 1, lidocaine 15 mL p.o. x 1, famotidine 20 mg x 1, 1 L of sodium chloride, ondansetron 4 mg x 1, morphine 4 mg x 1, ceftriaxone [address] Victoria was contacted by the ED doctor, recommended to admit and agreed to consult. Patient was admitted for complicated UTI and nephrolithiasis treatment and management. Social history: Denies smoking, alcohol intake, recreational drugs. Medications: Bupropion, docusate, hydroxyzine, melatonin, metoclopramide, pantoprazole. Allergies: Denies Review of Systems Review of Systems Systems Reviewed: All systems reviewed, normal except as documented Exam Vital Signs Temp Pulse Resp BP Pulse Ox O2 Del Method 98.2 F 68 18 94/73 98 Room Air 11/02/24 12:11/02/24 12:11/02/24 12:11/02/24 12:25 11/02/24 12:25 11/02/24 12:25 Narrative Exam Physical Exam General: Awake and in no acute distress. Conversational and non-toxic appearing. HEENT: Normocephalic, atraumatic, mucous membranes moist. Heart: Regular rate and rhythm, no murmurs. Lungs: Clear to auscultation with no wheezing or crackles. Abdomen: Soft, nondistended. No guarding or rebound tenderness. Left sided CVA tenderness, left flank tenderness. Neurologic: Alert and oriented x3, no gross neurological deficit, and patient able to move all 4 extremities. Extremities: No edema. Skin: No rash or ecchymoses. Results: Labs 11/02/24 08:25 11/02/24 08:25 Labs: Short CBC 11/02/24 Range/Units 08:25 WBC 8.9 (3.6-11.0) Thou/mm3 Hgb 10.9 L (12.0-16.0) g/dL Hct 31.4 L (36.0-46.0) % Plt Count 236 (140-440) Thou/mm3 BMP 11/02/24 08:25 Sodium 142 Potassium 3.4 Chloride 107 Carbon Dioxide 23.2 BUN 11 Creatinine 0.9 Glucose 114 H Calcium 9.1 Liver Function 11/02/24 Range/Units 08:25 Total Bilirubin 0.4 (0.3-1.2) mg/dL AST 17 (0-34) U/L ALT 13 (10-49) U/L Alkaline Phosphatase 92 (46-116) U/L Albumin 4.2 (3.5-5.0) gm/dL Urine 11/02/24 Range/Units 08:00 Urine Color Yellow (Lt Yel-Yel) Urine Clarity Turbid A (Clear/Hazy) Urine pH 6.0 (5.0-7.0) Ur Specific [place] 1.027 (1.001-1.035) Urine Protein 1+ A (Neg - Trace) Urine Glucose (UA) Negative (Negative) Quality Measures Quality Measures VTE prophylaxis Medications Home Medications and Allergies Home Medications ?Medication ?Instructions ?Recorded ?Confirmed ?Type Lactobacillus acidophilus 10 1 cap PO QDAY ##0 5 11/02/24 History billion cell capsule (Probiotic) Held on 11/02/24. Instructions: Doctor's Order melatonin 5 mg tablet 10 mg PO HS PRN SLEEPLESSNES S #0 10/07/14 11/02/24 History tabs bupropion HCl 300 mg 24 hr tablet, 300 mg PO QDAY 10/2111/02/24 History extended release docusate sodium 250 mg capsule 250 mg PO BID PRN const ipation 11/02/24 11/02/24 History hydroxyzine HCl 25 mg tablet 25 mg PO QDAY 11/02/24 History Allergies Allergy/AdvReac Type Severity Reaction Status Date / Time No Known Allergies Allergy Verified 11/02/24 07:13 Visit Medications Acetaminophen (Acetaminophen 325 Mg Tablet) 650 mg PO Q6H PRN PRN Reason: Fever >100.3 or pain 1-3 Stop: 12/02/24 09:57 Bupropion HCl (Bupropion Hcl Xl 150 Mg Tabcr) 300 mg PO QDAY ZAHEER Stop: 12/03/24 08:59 Enoxaparin Sodium (Enoxaparin Sod Inj 40 Mg/0.4 Ml Syringe) 40 mg SC QDAY ZAHEER Stop: 11/17/24 08:59 Hydromorphone HCl (Hydromorphone Inj 2 Mg/Ml Vial) 1 mg IVP Q4HR PRN PRN Reason: Pain 7-10 Stop: 11/07/24 10:02 Hydroxyzine HCl (Hydroxyzine Hcl 25 Mg Tablet) 25 mg PO HS ZAHEER Stop: 12/03/24 20:59 Ceftriaxone Sodium/Dextrose (Rocephin/D5w 1gm Iv Premix) 1 gm in 50 mls @ 100 mls/hr IV QDAY ZAHEER Stop: 11/10/24 08:59 Ketorolac Tromethamine (Ketorolac Inj 30 Mg/Ml Vial) 30 mg IVP Q6HR PRN PRN Reason: Pain 4-6 Stop: 11/07/24 10:02 Magnesium Hydroxide (Milk Of Magnesia Susp 30 Ml Udc) 30 ml PO QDAY PRN; Protocol PRN Reason: CONSTIPATION Stop: 12/02/24 09:57 Last Admin: 11/02/24 11:10 Dose: 30 ml Melatonin (Melatonin 3 Mg Tablet) 3 mg PO HS PRN PRN Reason: insomnia Stop: 12/02/24 20:59 Ondansetron HCl (Ondansetron Inj 2 Mg/Ml Inj 2 Ml) 4 mg IVP Q6H PRN; Protocol PRN Reason: NAUSEA OR VOMITING Stop: 12/02/24 09:57 Last Admin: 11/02/24 11:15 Dose: 4 mg Pantoprazole Sodium (Pantoprazole 40 Mg Tablet) 40 mg PO QDAY ZAHEER Stop: 12/03/24 08:59 Sennosides (Senna Tablet) 1 tab PO QDAY PRN; Protocol PRN Reason: constipation Stop: 12/02/24 09:57 Tamsulosin HCl (Tamsulosin Hcl 0.4 Mg Capsule) 0.4 mg PO QDAY ZAHEER Stop: 12/02/24 10:14 Last Admin: 11/02/24 10:52 Dose: 0.4 mg Discontinued Medications Al Hydrox/Mg Hydrox/Simethicone (Mg Hyd/Al Hyd/Zee (Maalox Reg) Susp 30 Ml Udc) 30 ml PO X1 ONE Stop: 11/02/24 07:25 Last Admin: 11/02/24 07:33 Dose: 30 ml Dicyclomine HCl (Dicyclomine Inj 10 Mg/Ml 2ml Amp) 10 mg IM X1 ONE Stop: 11/02/24 07:25 Last Admin: 11/02/24 07:32 Dose: 10 mg Famotidine (Famotidine 20 Mg Tablet) 20 mg PO X1 ONE Stop: 11/02/24 07:25 Last Admin: 11/02/24 07:33 Dose: 20 mg Famotidine (Famotidine Inj 10 Mg/Ml Vial 2 Ml) 20 mg IVP X1 ONE Stop: 11/02/24 08:06 Last Admin: 11/02/24 08:34 Dose: 20 mg Sodium Chloride (Ns) 1,000 mls @ 999 mls/hr IV .Q1H1M ONE Stop: 11/02/24 09:05 Last Infusion: 11/02/24 10:04 Dose: Infused Ceftriaxone Sodium/Dextrose (Rocephin/D5w 1gm Iv Premix) 1 gm in 50 mls @ 100 mls/hr IV X1 ONE Stop: 11/02/24 09:48 Last Infusion: 11/02/24 10:04 Dose: Infused Influenza Virus Vaccine Quadrival (Influenza Virus Quadrivalent 0.5 Ml Syringe) 0.5 ml IMi .ONCE ONE Stop: 11/02/24 13:30 Ketorolac Tromethamine (Ketorolac Inj 30 Mg/Ml Vial) 15 mg IVP Q4HR PRN PRN Reason: Pain 4-6 Stop: 11/07/24 10:02 Lidocaine HCl (Lidocaine Viscous 2% 15 Ml Udc) 15 ml PO X1 ONE Stop: 11/02/24 07:25 Last Admin: 11/02/24 07:33 Dose: 15 ml Morphine Sulfate (Morphine Sulf Inj 10 Mg/Ml Vial) 4 mg IVP Q1H PRN PRN Reason: abd pain Stop: 11/07/24 08:41 Last Admin: 11/02/24 08:47 Dose: 4 mg Morphine Sulfate (Morphine Sulf Inj 10 Mg/Ml Vial) 4 mg IVP Q1H PRN PRN Reason: abd pain Stop: 11/07/24 08:41 Ondansetron HCl (Ondansetron Inj 2 Mg/Ml Inj 2 Ml) 4 mg IVP X1 ONE; Protocol Stop: 11/02/24 08:06 Last Admin: 11/02/24 08:34 Dose: 4 mg Assessment & Plan Plan The patient is a 39-year-old female with a previous medical history of anxiety, fatty liver disease, nephrolithiasis who was brought to the ED on 11/02/2024 due to left flank pain, urinary urgency, 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 #Nephrolithiasis #Complicated UTI Patient has chills, left flank pain, urinary urgency. UA was positive for signs of UTI. Imaging showed small 2 to 3 mm calculi. Plan: ? Urine cultures ordered ? Encouraged oral rehydration at least 2 L/day ? Ceftriaxone 1 g daily 11/02/2024?current ? Tamsulosin 0.4 mg daily ? Urology consulted, appreciate recs ? Pain control as needed #History of anxiety Plan: ? Resume home medication #History of fatty liver Plan: ? Low-fat diet Health maintenance: FEN: low fat DVT prophylaxis: lovenox GI prophylaxis: pantoprazole Dispo: med surg CODE STATUS: Full code Plan of care discussed with attending Dr. Landry, PGY-[address] Stewart. Aneta Anthony MD, PGY 1. Attending Provider Attestation/Addendum I attest that I was physically present for the evaluation, physical examination, lab and imaging review of the patient with the residents. I discussed the case with the residents and agree with the findings and plans of care as documented above. Patient is a 39 years old female with past medical history of anxiety, fatty liver disease, nephrolithiasis who presented to the ED with complaint of left flank pain. She also has urinary urgency, chills. Her symptoms started this morning. In the ED, her vitals were stable. Lab results show hemoglobin of 10.9. Urinalysis showed turbid urine with 3+ blood, 3+ ketones, positive leukocyte esterase, 693 RBCs, 15 WBCs and rare bacteria. Abdomen/pelvic CT shows minimal left hydronephrosis secondary to 2 mm proximal left ureteral calculus, 3 mm calculus either within the urinary bladder or at the left ureterovesical junction. Urology was contacted by ED, recommended admission for complicated UTI in setting of nephrolithiasis. After examination of the patient and review of the clinical data I feel that this patient needs admission to the hospital for further treatment/evaluation of complicated UTI and intractable pain in setting of nephrolithiasis. Started patient on IV Rocephin, tamsulosin. Urine cultures are ordered. Pain regimen in place.. Resumed home medication for her anxiety and low-fat diet for fatty liver. Olamide Landry MD
[2024-11-02] MEDS: KETOROLAC INJ 30 MG/ML VIAL IVP (16:34)
[2024-11-02] MEDS: hydrOXYzine HCL 25 MG TABLET PO (21:07)
[2024-11-03] VITALS: BP 112/65; PULSE 78; RESP 15; TEMP 36.5; O2SAT 98
[2024-11-03 04:00] VITALS: BP 93/58; PULSE 71; RESP 16; TEMP 36.2; O2SAT 99
[2024-11-03] MEDS: ACETAMINOPHEN 325 MG TABLET 650 MG PO (06:21)
[2024-11-03 06:29] LABS: Basophils % (Auto) 1 % (0-2.5); Eosinophils # (Auto) 0.2 Thou/mm3 (0.0-0.5); Eosinophils % (Auto) 4 % (0-10); Hematocrit 28.4 % (36.0-46.0); Hemoglobin 9.7 g/dL (12.0-16.0); Immature Granulocytes % (Auto) 0 % (0-0); Immature Granulocytes Auto 0.01 Thou/mm3 (0.00-0.00); Lymphocytes # (Auto) 1.4 Thou/mm3 (1.0-4.8); Lymphocytes % (Auto) 26 % (10-50); Mean Corpuscular HGB Conc 34.2 g/dl (31.0-37.0); Mean Corpuscular Hemoglobin 30.2 pg (25.0-35.0); Mean Corpuscular Volume 89 fL (80-100); Monocytes # (Auto) 0.6 Thou/mm3 (0.0-0.8); Monocytes % (Auto) 11 % (0-12); Neutrophils # (Auto) 3.1 Thou/mm3 (1.8-7.7); Neutrophils % (Auto) 58 % (37-80); Nucleated Red Blood Cell % 0 /100 WBC (0); Platelet Count 207 Thou/mm3 (140-440); RDW Standard Deviation 43.8 fL (36.4-46.3); Red Blood Count 3.21 Miln/mm3 (4.00-5.20); White Blood Count 5.4 Thou/mm3 (3.6-11.0)
[2024-11-03 07:14] LABS: Alanine Aminotransferase 10 U/L (10-49); Albumin, Serum 3.4 gm/dL (3.5-5.0); Albumin/Globulin Ratio 1.6 (1.2-2.2); Alkaline Phosphatase 80 U/L (46-116); Anion Gap 10 (7-16); Aspartate Amino Transferase 16 U/L (0-34); BUN/Creatinine Ratio 9 Ratio (12-20); Bilirubin,Total 0.4 mg/dL (0.3-1.2); Blood Urea Nitrogen 6 mg/dL (9-23); Calcium 8.6 mg/dL (8.3-10.6); Calcium (Corrected) 9.1 mg/dL (8.5-10.1); Carbon Dioxide 23.4 mMol/L (20.0-31.0); Chloride 106 mMol/L (98-107); Creatinine (Component) 0.7 mg/dL (0.6-1.3); Estimated Creatinine Clearance 104.9 mL/min (>60); Globulin 2.1 gm/dL (2.3-3.5); Glucose 90 mg/dL (74-106); Magnesium 1.9 mg/dL (1.6-2.6); Osmolality,Calculated 275 (275-295); Phosphorous 2.6 mg/dL (2.4-5.1); Potassium 3.2 mMol/L (3.4-5.1); Sodium 139 mMol/L (136-145); Total Protein 5.5 gm/dL (5.7-8.2); eGFR > 60 See Note
[2024-11-03 07:51] VITALS: BP 105/60; PULSE 74; RESP 18; TEMP 36; O2SAT 98
[2024-11-03 07:55] VITALS: PULSE 76; RESP 18; RESP 99
[2024-11-03] MEDS: TAMSULOSIN HCL 0.4 MG CAPSULE PO (09:11)
[2024-11-03] MEDS: PANTOPRAZOLE 40 MG TABLET PO (09:11)
[2024-11-03] MEDS: POTASSIUM CHLORIDE 20 mEq TABCR 40 MEQ PO (09:11)
[2024-11-03] MEDS: ENOXAPARIN SOD INJ 40 MG/0.4 ML SYRINGE SC (09:11)
[2024-11-03] MEDS: cefTRIAXone/D5w 1gm IV premix 1 GM/50 ML BAG IV (09:12)
[2024-11-03] MEDS: BuPROPion HCL XL 150 MG TABCR 300 MG PO (09:58)
[2024-11-03 12:00] VITALS: BP 107/70; PULSE 76; RESP 20; TEMP 36.2; O2SAT 99
[2024-11-03] MEDS: KETOROLAC INJ 30 MG/ML VIAL IVP (13:54)
--- NOTE | 2024-11-03 15:09 | ESDS_ITS ---
<Statement entered by Jean Pierre Stewart MD - 11/04/24 12:19> I discussed with and supervised the physician general internal medicine physician involved in the care of this patient. Patient assessment and plan was discussed with entire medicine team, including my attending. I agree with the assessment and plan as documented by physician general internal medicine doctor. Patient care was discussed with my attending physician Dr. Gris Stewart, PGY-2 Planned Discharge Date 11/03/24 DS: Providers Provider Date of admission: 11/02/24 10:37 Primary care physician: Rubi Ballard PA-C Admitting Provider: Olamide Landry MD Attending Provider on Admission: Olamide Landry MD Consults: 11/02/24 10:12 Consult to Urology Stat Comment: nephrolithiasis Consulting Provider: Henry Owens Attending Provider on DC: Aneta Anthony MD Discharging Provider: Aneta Anthony MD DS: Diagnosis Problem List Completed Was Problem List Reviewed/Reconciled?: Yes Hospital Course Hospital Course Hospital course: The patient is a 39-year-old female with a previous medical history of anxiety, fatty liver, nephrolithiasis who came in on 11/02/2024 due to left flank tenderness, chills that started early in the morning. She also reported urinary urgency. She had similar symptoms 3 months ago, CT showed small renal calculi. In the ED she was hemodynamically stable, afebrile, saturating well on room air. Labs were significant for hemoglobin 10.9, urine analysis was positive for signs of UTI, positive for blood 3+, RBC 693, rare bacteria. Cultures were sent. CT abdomen pelvis showed minimal left hydronephrosis secondary to 2 mm proximal left ureteral calculus, 3 mm calculus either within the urinary bladder or ureterovesical junction. She received fluids, she was started on antibiotics. Urologist was consulted recommended conservative treatment with antibiotics and Flomax. She was admitted for acute complicated UTI treatment and management. She reports that pain has improved, she does not have any chills. She was seen and examined at the bedside was medically cleared for discharge home. Hospital diagnoses: #Nephrolithiasis #Complicated UTI #History of anxiety #History of fatty liver Discharge instructions: - Follow-up with your PCP in 1 week - Follow-up with results of urine culture with your PCP - Follow-up with urologist, obtain a referral from your PCP if needed - Take Cephalexin 500 mg four times a day for 5 days - Take Tamsulosin 0.4 mg every day for 30 days - Take the rest of your medications as prescribes - If your symptoms worsen, cone to the ED or call 911 Time Spent with Patient Time attestation: Total time spent providing and/or coordinating discharge services: Time spent: Less than 30 minutes Exam Vital Signs Temp Pulse Resp BP Pulse Ox O2 Del Method 97.2 F 76 20 107/70 99 Room Air 11/03/24 12:11/03/24 12:11/03/24 12:11/03/24 12:11/03/24 12:11/03/24 12:00 Narrative Exam Physical Exam General: Awake and in no acute distress. Conversational and non-toxic appearing. HEENT: Normocephalic, atraumatic, mucous membranes moist. Heart: Regular rate and rhythm, no murmurs. Lungs: Clear to auscultation with no wheezing or crackles. Abdomen: Soft, nondistended. No guarding or rebound tenderness. Mild left flank tenderness. Neurologic: Alert and oriented x3, no gross neurological deficit, and patient able to move all 4 extremities. Extremities: No edema. Skin: No rash or ecchymoses. Discharge Plan Plan Patient Disposition: HOME (Self Care) Patient condition on transfer: Stable Care Plan Goals: Discharge instructions: - Follow-up with your Primary Care Provider in 1 week - Follow-up with results of urine culture with your Primary Care Provider - Follow-up with urologist, obtain a referral from your Primary Care Provider if needed - Take Cephalexin 500 mg four times a day for 5 days - Take Tamsulosin 0.4 mg every day for 30 days - Take the rest of your medications as prescribes - If your symptoms worsen, cone to the ED or call 911 Prescriptions/Referrals Prescriptions/Med Rec: New tamsulosin 0.4 mg Capsule 0.4 mg PO QDAY 30 Days Qty: 30 0RF Rx Instructions: Take one tablet once a day for 30 days cephalexin 500 mg capsule 500 mg PO QID 5 Days Qty: 20 0RF Rx Instructions: Take one capsule four times a day for 5 days Continued melatonin 5 MG tablet 10 mg PO HS PRN (Reason: SLEEPLESSNESS) Qty: 0 Probiotic 1 EACH capsule 1 cap PO QDAY Qty: 0 metoclopramide HCl [Reglan] 10 mg tablet 10 mg PO Q6H PRN (Reason: nausea and vomiting) Qty: 30 0RF pantoprazole [Protonix] 40 mg tablet,delayed release (DR/EC) 40 mg PO QDAY Qty: 30 0RF hydroxyzine HCl 25 mg tablet 25 mg PO QDAY docusate sodium 250 mg capsule 250 mg PO BID PRN (Reason: constipation) Patient Comments: TAKE 1 CAPSULE BY MOUTH EVERY DAY NEEDED bupropion HCl 300 mg tablet extended release 24 hr 300 mg PO QDAY Referrals: Rubi Ballard PA-C [Primary Care Provider] - Patient/Caregiver Discharge Instructions Education Materials: Anatomy of the Female Urinary Tract, ED Kidney Stone, Passed, ED Kidney Stone w/ Colic Print Language: Guyanese Stand Alone Forms: Jenifer Award Info., Patient Portal Info Letter Discharge Order Discharge Orders: Discharge (Routine); Ordered 11/03/24 Ordered By: Jean Pierre Stewart Quality Discharge Quality Measures VTE prophylaxis MD Attestestation MD Attestation I attest that I was physically present for the evaluation, physical examination, lab and imaging review of the patient with the residents. I discussed the case with the residents and agree with the findings and plans of care as documented above. Olamide Landry MD
--- NOTE | 2024-11-03 15:45 | PC.SS ---
SS follow up note:Pain management, on IV ABX. Patient will discharge home when medically cleared.
[2024-11-03 16:00] VITALS: BP 128/85; PULSE 85; RESP 18; TEMP 36.4; O2SAT 95
--- NOTE | 2024-11-05 08:09 | URONOTEN_ITS ---
RE: PATY RUSSELL : 1985 DATE: 11/02/2024 CHIEF COMPLAINT: 1. Left-sided lower abdominal pain with nausea and urinary urgency since morning. 2. History of stone disease in the past. HISTORY OF PRESENT ILLNESS: This is a 39-year-old female who presented to the emergency room with a history of left lower abdominal pain started this morning. The patient has history of gastritis, which is associated with nausea and vomiting. 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 The patient has no history of constipation or diarrhea. She has no high fever. He has history of passing stone in the past, but no stone analysis has been done. REVIEW OF SYSTEMS: All systems reviewed, negative except as documented. HEENT: Denies dysphagia. Cardiovascular: There is no shortness of breath, chest pain. Gastrointestinal: Has a history of lower abdominal pain. No belching. No bloating. No change in bowel habits. Genitourinary: Denies any abnormal menses. Denies abnormal vaginal bleeding. She has a history of stone disease, which she has passed. Neurologic: System reviewed. No additional complaints except as documented. Endocrine: No change in libido and no diabetes mellitus. PAST MEDICAL HISTORY: Negative cardiac disorder or congestive heart failure. Respiratory: Negative for COPD. Endocrine: Negative for diabetes mellitus. Hematological: Denies sickle cell disease. SOCIAL HISTORY: Smoking, never smoked. PHYSICAL EXAMINATION: GENERAL: Condition is satisfactory. The patient is alert and oriented x3. She is not in acute distress. Vital Signs: Stable, they are in HPI in EMR. VARIOUS LABS: Labs not available at this time for me to review. I have reviewed the CAT scan of the abdomen and pelvis, this was done on 11/02/2024, this revealed 2 mm left renal calculus, 2 mm stone proximal ureter left, minimal hydronephrosis. There is also possible stone 3 mm at the ureterovesical junction or have passed the stone and is in the kidney. The patient at this time is asymptomatic. RECOMMENDATIONS: 1. Drink enough fluid so that she has urinary output of 2400 mL in 24 hours. 2. Tamsulosin 0.4 mg p.o. daily. 3. Strain all the urine and followup appointment with me in urology office at this time patient does not need any surgical intervention. All above issues were discussed with the patient in detail. Questions answered to the patient's satisfaction. The patient verbalized understanding. If patient has severe pain nausea vomiting or gross hematuria, high fever before Follow-up appointment with me in the office she should contact my office [facility] or go to the nearest emergency room DT: 16:29:34 TT: 19:54:00 Ref: [id number] - TID: [id number] MTDD
== END 2024-11-03 17:29 | disposition home or self-care (01) | DRG 465 ==
LOC: SERX 10:00 → SERHOLD 10:39 → S3SX 13:30
PROVIDERS: Nurse Practitioner Family; Admitting Provider Student in an Organized Health Care Education/Training Program; Emergency Provider Emergency Medicine; PCP Physician Assistant Medical; Visit Provider Student in an Organized Health Care Education/Training Program
DX: N13.2 Hydronephrosis with renal and ureteral calculous obstruction (principal); F41.9 Anxiety disorder, unspecified; K76.0 Fatty (change of) liver, not elsewhere classified; Z87.442 Personal history of urinary calculi
CPT/HCPCS: 36415; 74176; 80053; 80307; 80320; 81001; 81025; 83605; 83690; 83735; 84100; 85025; 87086; 93225; 96365; 96366; 96372; 96375; 96376; 99285; J0500; J0696; J1650; J1885; J2270; J2405; J3490; J7030; A9270; G0480

== ENCOUNTER 2024-12-12 19:53 | Emergency (ER) | payer MEDICAID, SELFPAY ==
[2024-12-12 19:54] VITALS: BMI 24.2
--- NOTE | 2024-12-12 20:00 | EKG_ITS ---
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
[2024-12-12 20:31] VITALS: BP 117/81; PULSE 95; RESP 16; TEMP 36.8; O2SAT 100
--- NOTE | 2024-12-12 21:39 | XR_ITS ---
Examination: PA chest single view TECHNIQUE: Upright PA chest single view Date and time: December 12, 2024 2145 hours INDICATIONS: Onset chest pain today. FINDINGS: Normal heart size. Lungs are clear. The osseous structures are intact IMPRESSION: No active disease
--- NOTE | 2024-12-12 21:44 | EDNOTE_ITS ---
<Statement entered by Kelly Dempsey MD - 12/13/24 02:10> As co-signing physician, I was present and available for consult prn. I concur with the plan and care as documented by the midlevel provider. ED Chest Pain RME/HPI General Chief Complaint: Chest Pain Stated Complaint: CHEST PAIN Time Seen by Provider: 12/12/24 21:38 Arrival date/time: 12/12/24 19:53 39F with history psych and GERD presents to ED with several weeks of intermittent L lower chest/LUQ pain. Patient has upcoming EGD and colonoscopy for GERD. Patient has been taking her pantoprazole. Limitations: no limitations Related Data Home Medications ?Medication ?Instructions ?Recorded ?Confirmed Lactobacillus acidophilus 10 1 cap PO QDAY ##0 5 11/02/24 billion cell capsule (Probiotic) melatonin 5 mg tablet 10 mg PO HS PRN SLEEPLESSNES S #0 10/07/14 11/02/24 tabs bupropion HCl 300 mg 24 hr tablet, 300 mg PO QDAY 10/2111/02/24 extended release docusate sodium 250 mg capsule 250 mg PO BID PRN const ipation 11/02/24 11/02/24 hydroxyzine HCl 25 mg tablet 25 mg PO QDAY 11/02/24 Previous Rx's ?Medication ?Instructions ?Recorded metoclopramide HCl 10 mg tablet 10 mg PO Q6H PRN nause a and 08/11/24 (Reglan) vomiting #30 tabs pantoprazole 40 mg tablet,delayed 40 mg PO QDAY #30 ta bs 08/11/24 release (Protonix) Allergies Allergy/AdvReac Type Severity Reaction Status Date / Time No Known Allergies Allergy Verified 12/12/24 20:00 Review of Systems Review of Systems Systems Reviewed: All systems reviewed, normal except as documented Constitutional Constitutional: Reports system reviewed and no additional complaints, except as documented, Denies fever(s) and Denies headache(s) ENT Ears, Nose, Mouth, and Throat: Denies disequilibrium and Denies headache(s) Cardiovascular Cardiovascular: Reports system reviewed and no additional complaints, except as documented, Reports as per HPI, Reports chest pain and Denies dyspnea Respiratory Respiratory: Reports system reviewed and no additional complaints, except as do cumented, Denies cough and Denies dyspnea Gastrointestinal Gastrointestinal: Reports system reviewed and no additional complaints, except as documented, Reports as per HPI, Reports abdominal pain, Denies nausea and Denies vomiting Neurologic Neurologic: Reports system reviewed and no additional complaints, except as documented, Denies confusion, Denies disequilibrium and Denies headache(s) Psychiatric Psychiatric: Denies confusion Past Medical History Past Medical History CARDIAC: Negative Cardiac Disorders or Congestive Heart Failure RESPIRATORY: Negative Chronic Obstructive Pulmonary Disease (COPD) or Asthma GENITOURINARY: Negative Renal Disease ENDOCRINE: Negative Diabetes Mellitus Type 1 or Diabetes Mellitus Type 2 HEMATOLOGIC: Negative Sickle Cell Disease Social History SMOKING STATUS: Never smoker ED Exam General Limitations: Present no limitations General appearance: Present alert and in no apparent distress Head Head exam: Present atraumatic Eye Eye exam: Present normal appearance, PERRL and EOMI ENT ENT exam: Present normal exam, normal oropharynx and mucous membranes moist Neck Neck exam: Present normal inspection, full ROM and trachea midline Chest Chest inspection: Present normal inspection and symmetric chest wall rise Respiratory Respiratory exam: Present normal lung sounds bilaterally Cardiovascular Cardiovascular exam: Present regular rate, normal rhythm and normal heart sounds Abdominal Exam Abdominal exam: Present soft and normal bowel sounds Extremities Exam Extremities exam: Present normal inspection and full ROM Back Exam Back exam: Present normal inspection and full ROM Neurological Exam Neurological exam: Present alert, oriented X3 and CN II-XII intact Psychiatric Psychiatric exam: Present normal affect and normal mood Skin Skin exam: Present warm, dry, intact and normal color Course Quality Measures none Orders Category Date Time Status EKG (ED ONLY) *Do not use* NOW Care 12/12/24 20:00 Completed EKG (ED Only) Stat Exams 12/12/24 20:00 Draft XR chest 1V portable Stat Exams 12/12/24 21:39 Completed CBC Stat Lab 12/12/24 21:55 Completed Comprehensive Metabolic Panel Stat Lab 12/12/24 21:55 Completed D-Dimer Stat Lab 12/12/24 21:55 Completed HCG Qualitative,Urine Stat Lab 12/12/24 21:54 Completed Lipase Stat Lab 12/12/24 21:55 Completed Troponin I Stat Lab 12/12/24 21:55 Completed Famotidine [Pepcid] Med 12/12/24 21:39 Discontinued 40 mg PO X1 ONE mg Hyd/Al Hyd/Zee Susp [Maalox Susp] Med 12/12/24 21:39 Discontinued 30 ml PO X1 ONE Vital Signs Vital signs: Vital Signs Temperature 98.3 F 12/12/24 20:31 Pulse Rate 95 12/12/24 20:31 Respiratory Rate 16 12/12/24 20:31 Blood Pressure 117/81 12/12/24 20:31 Pulse Oximetry (%) 100 12/12/24 20:31 Oxygen Delivery Method Room Air 12/12/24 20:31 O2 at 100% on RA and WNLs Chest Pain MDM Narrative MDM Narrative:: 39F with history psych and GERD presents to ED with several weeks of intermittent L lower chest/LUQ pain. Patient has upcoming EGD and colonoscopy for GERD. Patient has been taking her pantoprazole. Physical exam reveals normal WOB. No obvious ab or chest wall tenderness. Patient is afebrile, calm, and alert. EKG is sinus tach of 103. CXR unremarkable. No leukocytosis or anemia. CMP unremarkable. Trop and D-dimer normal. Meds and juvenile counselor given. Patient data External records reviewed:: [facility] previous records Clinical information provided by:: patient Social determinants that could affect healthcare access:: mental health Patient has the following chronic illnesses:: psych and GERD How is presenting disease/condition affected by chronic disease/condition?: exacerbated by Evaluation data The following diagnostics were reviewed and interpreted by me:: lab results, radiology exam(s) and EKG tracing(s) Lab and/or radiology exams considered but not ordered:: ordered Interpretation Summary: above Medications / Prescriptions Medications or Prescriptions considered but not ordered:: ordered Medication administrations:: Medication Administration History Discontinued Medications Al Hydrox/Mg Hydrox/Simethicone (Mg Hyd/Al Hyd/Zee (Maalox Reg) Susp 30 Ml Udc) 30 ml PO X1 ONE Stop: 12/12/24 21:40 Last Admin: 12/12/24 21:59 Dose: 30 ml Documented By: SEAN Famotidine (Famotidine 20 Mg Tablet) 40 mg PO X1 ONE Stop: 12/12/24 21:40 Last Admin: 12/12/24 21:59 Dose: 40 mg Documented By: SEAN above Consultations Consultation(s) initiated? (list below): No Diagnosis Chest Pain Differential Diagnosis: fracture of rib, pneumothorax, stable angina, unstable angina pectoris, atypical chest pain, st elevation myocardial infarction, costochondritis, chest pain, biliary colic and other (GERD, pancreatitis, PE, ab pain) Most likely diagnosis given after review of the tests above:: ab pain and atypical chest pain Admission Indicated Admission indicated?: not indicated Admission Request Was there a request for admission?: No Disposition Plan Disposition Plan: Discharge Discharge Attestation Discharge Attestation: The patient and all family members were given an opportunity to ask questions and understood the discharge instructions. Discharge instructions specifically effects, indications for sooner follow up or return to the emergency department, and the expected course of current diagnosis. Patient condition: Stable Discharge Plan Plan Patient Disposition: HOME (Self Care) Discharge Disposition comment: Stable Prescriptions/Referrals Prescriptions/Med Rec: No Action melatonin 5 MG tablet 10 mg PO HS PRN (Reason: SLEEPLESSNESS) Qty: 0 Probiotic 1 EACH capsule 1 cap PO QDAY Qty: 0 metoclopramide HCl [Reglan] 10 mg tablet 10 mg PO Q6H PRN (Reason: nausea and vomiting) Qty: 30 0RF pantoprazole [Protonix] 40 mg tablet,delayed release (DR/EC) 40 mg PO QDAY Qty: 30 0RF hydroxyzine HCl 25 mg tablet 25 mg PO QDAY docusate sodium 250 mg capsule 250 mg PO BID PRN (Reason: constipation) Patient Comments: TAKE 1 CAPSULE BY MOUTH EVERY DAY NEEDED bupropion HCl 300 mg tablet extended release 24 hr 300 mg PO QDAY Referrals: Rubi Ballard PA-C [Primary Care Provider] - In 1 week Problem List Clinical Impression: Abdominal pain, Atypical chest pain Patient/Caregiver Discharge Instructions Education Materials: Abdominal Pain, ED Chest Pain, Uncertain Cause Additional Instructions: Please follow-up with PCP within 24-48 hours and return immediately if symptoms worsen. Can ask PCP about possible other GI referrals that are further away but have sooner appointments. Print Language: Sami Stand Alone Forms: Patient Portal Info Letter ARIANNE/THUY Supervising Physician GILLES Supervising Physician: Dr. Dempsey
[2024-12-12] MEDS: FAMOTIDINE 20 MG TABLET 40 MG PO (21:59)
[2024-12-12] MEDS: MG HYD/AL HYD/SIME (Maalox Reg) SUSP 30 ML UDC PO (21:59)
[2024-12-12 22:09] LABS: HCG Qualitative,Urine Negative
[2024-12-12 22:25] LABS: Basophils # (Auto) 0.1 Thou/mm3 (0.0-0.2); Basophils % (Auto) 1 % (0-2.5); Eosinophils # (Auto) 0.1 Thou/mm3 (0.0-0.5); Eosinophils % (Auto) 1 % (0-10); Hematocrit 38.4 % (36.0-46.0); Hemoglobin 12.6 g/dL (12.0-16.0); Immature Granulocytes Auto 0.01 Thou/mm3 (0.00-0.00); Lymphocytes # (Auto) 1.3 Thou/mm3 (1.0-4.8); Lymphocytes % (Auto) 20 % (10-50); Mean Corpuscular HGB Conc 32.8 g/dl (31.0-37.0); Mean Corpuscular Hemoglobin 29.2 pg (25.0-35.0); Mean Corpuscular Volume 89 fL (80-100); Monocytes # (Auto) 0.5 Thou/mm3 (0.0-0.8); Monocytes % (Auto) 8 % (0-12); Neutrophils # (Auto) 4.6 Thou/mm3 (1.8-7.7); Neutrophils % (Auto) 69 % (37-80); Nucleated Red Blood Cell # 0.00 Thou/mm3 (0.00-0.00); Nucleated Red Blood Cell % 0 /100 WBC (0); Platelet Count 276 Thou/mm3 (140-440); RDW Standard Deviation 42.8 fL (36.4-46.3); Red Blood Count 4.32 Miln/mm3 (4.00-5.20); White Blood Count 6.6 Thou/mm3 (3.6-11.0)
[2024-12-12 22:41] LABS: Alanine Aminotransferase 29 U/L (10-49); Albumin, Serum 4.9 gm/dL (3.5-5.0); Albumin/Globulin Ratio 1.6 (1.2-2.2); Alkaline Phosphatase 106 U/L (46-116); Anion Gap 10 (7-16); Aspartate Amino Transferase 26 U/L (0-34); BUN/Creatinine Ratio 10 Ratio (12-20); Bilirubin,Total 0.5 mg/dL (0.3-1.2); Blood Urea Nitrogen 9 mg/dL (9-23); Calcium 9.8 mg/dL (8.3-10.6); Calcium (Corrected) 9.8 mg/dL (8.5-10.1); Carbon Dioxide 23.0 mMol/L (20.0-31.0); Chloride 109 mMol/L (98-107); Creatinine (Component) 0.9 mg/dL (0.6-1.3); Estimated Creatinine Clearance 78.6 mL/min (>60); Globulin 3.0 gm/dL (2.3-3.5); Glucose 92 mg/dL (74-106); Lipase 27 U/L (12-53); Osmolality,Calculated 281 (275-295); Potassium 3.8 mMol/L (3.4-5.1); Sodium 142 mMol/L (136-145); Total Protein 7.9 gm/dL (5.7-8.2); Troponin I < 0.002 ng/mL (0.0-0.045); eGFR > 60 See Note
[2024-12-12 22:43] LABS: D-Dimer < 250 ng/mL (<600)
== END 2024-12-12 23:15 | disposition home or self-care (01) ==
PROVIDERS: Physician Assistant; Emergency Provider Emergency Medicine; PCP Physician Assistant Medical
DX: R07.89 Other chest pain (principal); R10.12 Left upper quadrant pain; R94.31 Abnormal electrocardiogram [ECG] [EKG]
CPT/HCPCS: 36415; 71045; 80053; 81025; 83690; 84484; 85025; 85379; 93005; 99283; A9270

== ENCOUNTER 2025-04-26 21:45 | Emergency (ER) | payer MEDICAID, SELFPAY ==
[2025-04-26 21:46] VITALS: BMI 21.1
[2025-04-26 22:12] VITALS: BP 119/84; PULSE 111; RESP 18; TEMP 36.9; O2SAT 97
--- NOTE | 2025-04-26 22:41 | PD.EDABDPN ---
ED Abdominal Pain RME/HPI General Chief Complaint: Abdominal Pain Stated complaint: UPPER ABD PAIN Time seen by provider: 04/26/25 22:39 Arrival date/time: 04/26/25 21:45 39F with history psych and GERD presents to ED with several weeks of intermittent burning epigastric pain. Patient has been taking her pantoprazole and tested negative for H. pylori. Patient denies N/V. Limitations: no limitations Related Data Home Medications ?Medication ?Instructions ?Recorded ?Confirmed Lactobacillus acidophilus 10 1 cap PO QDAY ##0 10/07/14 11/02/24 billion cell capsule (Probiotic) melatonin 5 mg tablet 10 mg PO HS PRN SLEEPLESSNESS #0 10/07/14 11/02/24 tabs bupropion HCl 300 mg 24 hr tablet, 300 mg PO QDAY 11/02/24 11/02/24 extended release docusate sodium 250 mg capsule 250 mg PO BID PRN constipation 11/02/24 11/02/24 hydroxyzine HCl 25 mg tablet 25 mg PO QDAY 11/02/24 11/02/24 Previous Rx's ?Medication ?Instructions ?Recorded metoclopramide HCl 10 mg tablet 10 mg PO Q6H PRN nausea and 08/11/24 (Reglan) vomiting #30 tabs pantoprazole 40 mg tablet,delayed 40 mg PO QDAY #30 tabs 08/11/24 release (Protonix) Allergies Allergy/AdvReac Type Severity Reaction Status Date / Time No Known Allergies Allergy Verified 04/26/25 21:46 Review of Systems Review of Systems Systems Reviewed: All systems reviewed, normal except as documented Gastrointestinal Gastrointestinal: Reports as per HPI and Reports abdominal pain Past Medical History Past Medical History CARDIAC: Negative Cardiac Disorders or Congestive Heart Failure RESPIRATORY: Negative Chronic Obstructive Pulmonary Disease (COPD) or Asthma GENITOURINARY: Negative Renal Disease ENDOCRINE: Negative Diabetes Mellitus Type 1 or Diabetes Mellitus Type 2 HEMATOLOGIC: Negative Sickle Cell Disease Social History SMOKING STATUS: Never smoker ED Exam General Limitations: Present no limitations General appearance: Present alert and in no apparent distress Head Head exam: Present atraumatic Neck Neck exam: Present normal inspection, full ROM and trachea midline Chest Chest inspection: Present normal inspection and symmetric chest wall rise Abdominal Exam Abdominal exam: Present soft; Absent tenderness Neurological Exam Neurological exam: Present alert and oriented X3 Psychiatric Psychiatric exam: Present normal affect and normal mood Skin Skin exam: Present warm, dry, intact and normal color Course Quality Measures none Orders Category Date Time Status CBC Stat Lab 04/26/25 22:53 Completed CMP [Comprehensive Metabolic Panel] Stat Lab 04/26/25 22:53 Completed Lipase Stat Lab 04/26/25 22:53 Completed Famotidine [Pepcid] Med 04/26/25 22:39 Discontinued 40 mg PO X1 ONE Lidocaine 2% Viscous [Xylocaine 2% Viscous] Med 04/26/25 22:39 Discontinued 15 ml PO X1 ONE Potassium Chloride [K-Dur] Med 04/26/25 23:57 Discontinued 40 meq PO X1 ONE Vital Signs Vital signs: Vital Signs Temperature 98.4 F 04/26/25 22:12 Pulse Rate 111 H 04/26/25 22:12 Respiratory Rate 18 04/26/25 22:12 Blood Pressure 119/84 04/26/25 22:12 Pulse Oximetry (%) 97 04/26/25 22:12 Oxygen Delivery Method Room Air 04/26/25 22:12 O2 at 97% on RA and WNLs Abdominal Pain MDM MDM Narrative MDM Narrative:: 39F with history psych and GERD presents to ED with several weeks of intermittent burning epigastric pain. Patient has been taking her pantoprazole and tested negative for H. pylori. Patient denies N/V. Physical exam reveals normal WOB. No obvious ab or chest wall tenderness. Patient is afebrile, calm, and alert. No leukocytosis or gross anemia. CMP mildly low K, repleted. Lipase normal. GI cocktail relieved symptoms. Waste Transportation Technician given. Patient data External records reviewed:: [facility] previous records Clinical information provided by:: patient Social determinants that could affect healthcare access:: mental health Patient has the following chronic illnesses:: psych and GERD How is presenting disease/condition affected by chronic disease/condition?: exacerbated by Evaluation data The following diagnostics were reviewed and interpreted by me:: lab results Lab and/or radiology exams considered but not ordered:: ordered Interpretation Summary: above Medications / Prescriptions Medications or Prescriptions considered but not ordered:: ordered Medication administrations:: Medication Administration History Discontinued Medications Famotidine (Famotidine 20 Mg Tablet) 40 mg PO X1 ONE Stop: 04/26/25 22:40 Last Admin: 04/26/25 22:47 Dose: 40 mg Documented By: BD Lidocaine HCl (Lidocaine Viscous 2% 15 Ml Udc) 15 ml PO X1 ONE Stop: 04/26/25 22:40 Last Admin: 04/26/25 22:47 Dose: 15 ml Documented By: BD Potassium Chloride (Potassium Chloride 20 Meq Tabcr) 40 meq PO X1 ONE Stop: 04/26/25 23:58 Last Admin: 04/27/25 00:04 Dose: 40 meq Documented By: BD above Consultations Consultation(s) initiated? (list below): No Diagnosis Differential diagnosis abdominal pain: abdominal pain, acute appendicitis, calculus of kidney, constipation, diverticulitis, endometriosis, gastroenteritis, pancreatitis, small bowel obstruction and other (gastritis) Most likely diagnosis given after review of the tests above:: gastritis Admission Indicated Admission indicated?: not indicated Admission Request Was there a request for admission?: No Disposition Plan Disposition Plan: Discharge Discharge Attestation Discharge Attestation: The patient and all family members were given an opportunity to ask questions and understood the discharge instructions. Discharge instructions specifically effects, indications for sooner follow up or return to the emergency department, and the expected course of current diagnosis. Patient condition: Stable Discharge Plan Plan Patient Disposition: HOME (Self Care) Discharge Disposition comment: Stable Prescriptions/Referrals Prescriptions/Med Rec: No Action melatonin 5 MG tablet 10 mg PO HS PRN (Reason: SLEEPLESSNESS) Qty: 0 Probiotic 1 EACH capsule 1 cap PO QDAY Qty: 0 metoclopramide HCl [Reglan] 10 mg tablet 10 mg PO Q6H PRN (Reason: nausea and vomiting) Qty: 30 0RF pantoprazole [Protonix] 40 mg tablet,delayed release (DR/EC) 40 mg PO QDAY Qty: 30 0RF hydroxyzine HCl 25 mg tablet 25 mg PO QDAY docusate sodium 250 mg capsule 250 mg PO BID PRN (Reason: constipation) Patient Comments: TAKE 1 CAPSULE BY MOUTH EVERY DAY NEEDED bupropion HCl 300 mg tablet extended release 24 hr 300 mg PO QDAY Referrals: Rubi Ballard PA-C [Primary Care Provider] - In 1 week Problem List Clinical Impression: Gastritis Patient/Caregiver Discharge Instructions Education Materials: ED Gastritis (Adult) Additional Instructions: Please follow-up with PCP within 24-48 hours and return immediately if symptoms worsen. Can take TUMs and/or Pepcid along with your pantoprazole. Print Language: Azeri Stand Alone Forms: Patient Portal Info Letter ARIANNE/THUY Supervising Physician ARIANNE/THUY Supervising Physician: Dr. Srinivasan
[2025-04-26] MEDS: LIDOCAINE VISCOUS 2% 15 ML UDC PO (22:47)
[2025-04-26] MEDS: FAMOTIDINE 20 MG TABLET 40 MG PO (22:47)
[2025-04-26 23:52] LABS: Alanine Aminotransferase 21 U/L (10-49); Albumin, Serum 4.8 gm/dL (3.5-5.0); Albumin/Globulin Ratio 1.8 (1.2-2.2); Alkaline Phosphatase 79 U/L (46-116); Anion Gap 10 (7-16); Aspartate Amino Transferase 22 U/L (0-34); BUN/Creatinine Ratio 9 Ratio (12-20); Bilirubin,Total 0.5 mg/dL (0.3-1.2); Blood Urea Nitrogen 6 mg/dL (9-23); Calcium 9.6 mg/dL (8.3-10.6); Calcium (Corrected) 9.6 mg/dL (8.5-10.1); Carbon Dioxide 24.4 mMol/L (20.0-31.0); Chloride 107 mMol/L (98-107); Creatinine (Component) 0.7 mg/dL (0.6-1.3); Estimated Creatinine Clearance 104.3 mL/min (>60); Globulin 2.6 gm/dL (2.3-3.5); Glucose 82 mg/dL (74-106); Lipase 28 U/L (12-53); Osmolality,Calculated 277 (275-295); Potassium 3.3 mMol/L (3.4-5.1); Sodium 141 mMol/L (136-145); Total Protein 7.4 gm/dL (5.7-8.2); eGFR > 60 See Note
[2025-04-27 00:05] LABS: Basophils # (Auto) 0.1 Thou/mm3 (0.0-0.2); Basophils % (Auto) 1 % (0-2.5); Eosinophils # (Auto) 0.1 Thou/mm3 (0.0-0.5); Eosinophils % (Auto) 3 % (0-10); Hematocrit 32.8 % (36.0-46.0); Hemoglobin 10.3 g/dL (12.0-16.0); Immature Granulocytes Auto 0.01 Thou/mm3 (0.00-0.00); Lymphocytes # (Auto) 1.9 Thou/mm3 (1.0-4.8); Lymphocytes % (Auto) 34 % (10-50); Mean Corpuscular HGB Conc 31.4 g/dl (31.0-37.0); Mean Corpuscular Hemoglobin 26.5 pg (25.0-35.0); Mean Corpuscular Volume 84 fL (80-100); Monocytes # (Auto) 0.6 Thou/mm3 (0.0-0.8); Monocytes % (Auto) 10 % (0-12); Neutrophils # (Auto) 2.9 Thou/mm3 (1.8-7.7); Neutrophils % (Auto) 52 % (37-80); Nucleated Red Blood Cell # 0.00 Thou/mm3 (0.00-0.00); Nucleated Red Blood Cell % 0 /100 WBC (0); Platelet Count 270 Thou/mm3 (140-440); RDW Standard Deviation 44.9 fL (36.4-46.3); Red Blood Count 3.89 Miln/mm3 (4.00-5.20); White Blood Count 5.5 Thou/mm3 (3.6-11.0)
== END 2025-04-27 00:17 | disposition home or self-care (01) ==
PROVIDERS: Physician Assistant; Emergency Provider Emergency Medicine; PCP Physician Assistant Medical
DX: K29.70 Gastritis, unspecified, without bleeding (principal)
CPT/HCPCS: 36415; 80053; 83690; 85025; 99282; J3490; A9270